=== PATIENT | female | born 1960 | race Caucasian/White ===

== ENCOUNTER → 2016-10-20 | Outpatient (CLI) | payer BC | LOC: RAD 11:15 | PROVIDERS: ATTEND Family Medicine | DX: Z12.31 Encounter for screening mammogram for malignant neoplasm of breast (principal) ==

== ENCOUNTER → 2016-11-15 | Outpatient (CLI) | payer BC | LOC: LAB 11:12 | PROVIDERS: ATTEND Internal Medicine Sleep Medicine | DX: Z01.818 Encounter for other preprocedural examination (principal) | CPT/HCPCS: 85002 ==